=== PATIENT | female | born 1960 | race Caucasian/White ===

== ENCOUNTER 2022-06-12 14:29 | Outpatient (CLI) | payer OTHER | END 2022-06-12 14:30 | disposition home or self-care (01) | LOC: RAD 14:29 | PROVIDERS: ATTEND Internal Medicine Pulmonary Disease | DX: R06.02 Shortness of breath (principal) ==

== ENCOUNTER 2025-08-15 12:38 | Outpatient (CLI) | payer OTHER | END 2025-08-15 12:40 | disposition home or self-care (01) | LOC: SONOGRAMA 12:38 | PROVIDERS: ATTEND Urology | DX: R31.0 Gross hematuria (principal) ==

== ENCOUNTER 2025-09-04 08:20 | Outpatient (CLI) | payer OTHER | END 2025-09-04 08:26 | disposition home or self-care (01) | LOC: RAD 08:20 | PROVIDERS: ATTEND Urology | DX: N20.0 Calculus of kidney (principal) ==